=== PATIENT | male | born 1995 | race African-American/Black ===

== ENCOUNTER 2019-01-08 21:21 | Emergency (ER) | payer OTHER, MEDICAID ==
[~2019-01-08] VITALS: Ht 193 cm; Wt 91.0 kg
[~2019-01-08 21:21] MED LIST: NO MEDS
[2019-01-08] MEDS ORDERED: IBUPROFEN 600MG TABLET PO STA (22:35)
[2019-01-08] MEDS ORDERED: BACITRACIN ZINC OINT UDPKT TOP ONE (22:45)
[2019-01-08] MEDS ORDERED: LIDOCAINE 1%/EPI 1:100,000 10 ML VIAL IJ ONE (22:45)
[2019-01-08] MEDS ORDERED: TETANUS, DIPHTHERIA, PERTUSSIS VAC/PF 0.5ML (>7YR OLD) IM ONE (22:45)
[2019-01-09 00:26] VITALS: BP 132/80
== END 2019-01-09 00:28 | disposition home or self-care (01) ==
LOC: ER 21:21
DX: S01.01XA Laceration without foreign body of scalp, initial encounter (principal); S01.412A Laceration without foreign body of left cheek and temporomandibular area, initial encounter; F12.10 Cannabis abuse, uncomplicated; Y04.0XXA Assault by unarmed brawl or fight, initial encounter; Y93.89 Activity, other specified; Y92.89 Other specified places as the place of occurrence of the external cause; Y99.8 Other external cause status
CPT/HCPCS: 12002; 12013; 90471; 90715; 99284; J3490

== ENCOUNTER 2019-01-15 11:33 | Emergency (ER) | payer OTHER, MEDICAID ==
[~2019-01-15] VITALS: Ht 193 cm; Wt 84.0 kg
[2019-01-15] MEDS ORDERED: IBUPROFEN 600MG TABLET PO ONE (14:15)
[2019-01-15 14:56] VITALS: BP 130/72
== END 2019-01-15 14:59 | disposition home or self-care (01) ==
LOC: ER 11:33
DX: S01.81XD Laceration without foreign body of other part of head, subsequent encounter (principal); S20.219A Contusion of unspecified front wall of thorax, initial encounter; X58.XXXD Exposure to other specified factors, subsequent encounter; F12.10 Cannabis abuse, uncomplicated
CPT/HCPCS: 71045; 99283

== ENCOUNTER 2023-07-21 05:06 | Emergency (ER) | payer OTHER, MEDICAID ==
[~2023-07-21] VITALS: Ht 193 cm; Wt 89.9 kg
[2023-07-21 05:13] VITALS: BP 156/104; O2SAT 100
[2023-07-21] MEDS ORDERED: LIDOCAINE HCL/PF 1% 10 MG/ML 5ML VIAL INFIL ONE (05:45)
[2023-07-21] MEDS ORDERED: IBUP-2028 PO (06:03)
[2023-07-21] MEDS ORDERED: SULF1TAB48 PO (06:03)
[2023-07-21] MEDS ORDERED: CEPH500T PO (06:03)
[2023-07-21 06:18] VITALS: PULSE 85; RESP 18; TEMP 98.8
== END 2023-07-21 06:21 | disposition home or self-care (01) ==
LOC: ER 05:06
DX: N49.2 Inflammatory disorders of scrotum (principal); F12.10 Cannabis abuse, uncomplicated
CPT/HCPCS: 76705; 10060; 99284; J3490; Z7610 ×4

== ENCOUNTER 2024-09-27 12:06 | Emergency (ER) | payer MEDICAID, OTHER ==
[~2024-09-27] VITALS: Ht 193 cm; Wt 90.7 kg
[~2024-09-27 12:06] MED LIST changes: +CEPH500T PO; +IBUP-2028 PO; +SULF1TAB48 PO
[2024-09-27 12:12] VITALS: BP 119/71; PULSE 58; RESP 16; TEMP 97.7; O2SAT 100
== END 2024-09-27 14:00 | disposition home or self-care (01) ==
LOC: ER 12:06
DX: S60.022A Contusion of left index finger without damage to nail, initial encounter (principal); F12.10 Cannabis abuse, uncomplicated; Z79.1 Long term (current) use of non-steroidal anti-inflammatories (NSAID); X58.XXXA Exposure to other specified factors, initial encounter; Y93.89 Activity, other specified; Y92.89 Other specified places as the place of occurrence of the external cause; Y99.8 Other external cause status
CPT/HCPCS: 99281